=== PATIENT | male | born 1945 | race Caucasian/White ===

== ENCOUNTER → 2016-11-01 | Outpatient (CLI) | payer OTHER ==
[~2016-11-01] MED LIST: ACET-749 PO; AMLO-114 PO; ASPI81TA28 PO; CALC667C4 PO; CLR10 PO; CYCL60CA PO; DOCU100C31 PO; ENAL10TA88 PO; HYDR12.55 PO; LACT10SO17 PO; LOVA20TA4 PO; MBXC PO; MULT-506 PO; NUTR-1260 PO; SENN-61 PO; SILV1CRE73 TOP; TRMO2580 TOP; VNTHFA/IN INH; [UNRECOGNIZED DRUG - CODE] PO
--- NOTE | 2016-11-01 10:01 | DIAGNOSTIC IMAGING REPORT ---
PET/CT CLINICAL HISTORY: Head and neck cancer. COMPARISON STUDY: No priors. TECHNIQUE: One hour following the IV administration of 14.77 mCi of F-18 FDG, PET/CT examination was performed from the vertex through the bony pelvis. Noncontrast CT is performed for the purposes of anatomic correlation and attenuation correction. Note that this does not reflect a diagnostic CT examination. Images were reviewed on a separate [employer] independent workstation. Fused images were obtained. Standard uptake values reported are maximum values within the region of interest expressed in gm/mL. FINDINGS: PET FINDINGS: Head and neck: There is expected physiologic activity within the visualized brain parenchyma at the skull base and the salivary glands. Mild degenerative change is noted throughout the spine. There is nodular soft tissue thickening identified involving the vocal cords, right greater than left. There is significant FDG activity in this region the maximum SUV of 8.6. This likely corresponds to patient's known neoplasm. There is an indeterminant 1.5 cm nodular density identified in the floor of the mouth/base of the tongue on image #68. There is no associated FDG activity within this region. Thorax: Evaluation of the thorax demonstrates expected physiologic myocardial activity. Abdomen and pelvis: There is expected activity within the liver, spleen, kidneys, renal collecting system, and bladder. Low-level bowel activity is likely within physical limits. Unenhanced CT images: The brain parenchyma is normal as visualized. The bony orbits are intact and the orbital contents are within normal limits. There is mucosal thickening and an air-fluid level seen in the right maxillary antrum. The remaining paranasal sinuses and the mastoid air cells are clear. The salivary and thyroid glands are within normal limits. No cervical lymphadenopathy is identified. There is atherosclerotic calcification of the thoracic aorta which is normal in caliber. Advanced emphysema is noted. No airspace consolidation or pleural effusion is seen. No concerning pulmonary lesion is identified. There is no mediastinal, hilar, or axillary lymphadenopathy. The heart is normal in size and there is a trace pericardial effusion. The unenhanced liver, gallbladder, spleen, adrenal glands are grossly unremarkable. The kidneys are atrophic and without hydronephrosis. Bilateral renal cysts measure up to 3.9 cm. The pancreas is atrophic. There is atherosclerotic calcification of the abdominal aorta which is normal in caliber. 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 No bowel obstruction is identified. There is advanced diverticulosis of the left colon without CT evidence of acute diverticulitis. Findings are consistent with previous appendectomy. No intraperitoneal free air or abdominal ascites is seen. There is no abdominal, pelvic, or inguinal lymphadenopathy. The bladder, prostate, and seminal vesicles are normal as visualized. No lytic or blastic bony lesions are seen. IMPRESSION: 1. There is abnormal nodular soft tissue within the region of the vocal cords with associated abnormal FDG localization. This likely represents the patient's known head and neck cancer. 2. There is no evidence of FDG avid metastatic disease. 3. Indeterminate nodular soft tissue seen at the base of the tongue/floor of the mouth. This was not FDG avid and is of indeterminant but doubtful significance. 4. Advanced emphysema. 5. 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 6. Advanced diverticulosis of left colon without CT evidence of acute diverticulitis. 7. Additional findings as above. Electronically signed by: Evelio Riddle M.D. 11/01/2016 9:59 AM Dictated Date/Time: 11/01/2016 9:43 AM
== END ==
LOC: C.PET 06:43
PROVIDERS: ATTEND Family Medicine
DX: C76.0 Malignant neoplasm of head, face and neck (principal)

== ENCOUNTER → 2017-01-28 | Outpatient (CLI) | payer OTHER ==
[2017-01-28 10:09] VITALS: BP_SYST 133; BP_SYST 146; BP_DIAS 84; BP_DIAS 90; PULSE 76; TEMP 36.7; O2SAT 96
--- NOTE | 2017-01-28 11:24 | Radiation Oncology Follow-Up ---
Radiation Oncology Follow-Up Date of Visit Jan 28, 2017. 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 Turner is a 71-year-old gentleman who recently presented with hoarseness. The patient was referred to Dr. Calixto from ENT who did perform a NPL exam which revealed a right true vocal cord lesion. Dr. Calixto took the patient to the operating room on September 03 and performed a direct laryngoscopy with biopsy. During the procedure, he noted a infiltrative lesion disrupting the lateral surface of the true vocal cord extending down into the vocalis muscle. 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 Dr. Calixto recommended radiation therapy so we are now seeing the patient in consultation to discuss potential treatment. Currently, the patient's only complaint is hoarseness of the throat. Otherwise he is asymptomatic. He underwent radiation therapy. Treatments were completed 12/20/2016. He received 6300 cGy. (Eri Retana PA-C) Allergies Coded Allergies: JOSE Inhibitors (Verified Allergy, Unknown, SHORTNESS OF BREATH, 09/29/16) Home Medications Scheduled Acetaminophen/Codeine (Tylenol W/Codeine #3), 2 TAB PO QID Amlodipine (Norvasc), 10 MG PO DAILY Aspirin (Aspirin Ec), 81 MG PO DAILY Calcium Acetate (Phoslo 667 Mg), 1 CAP PO BID Cyclophosphamide (Cyclophosphamide), 25 MG PO DAILY Docusate Sodium (Docusate Sodium), 1 CAP PO BID Enalapril (Vasotec), 10 MG PO DAILY Hydrochlorothiazide (Hydrochlorothiazide), 1 TAB PO DAILY Lactulose (Chronulac), 30 ML PO BID Lovastatin (Mevacor), 20 MG PO DAILY Magic Swizzle (Magic Swizzle - SUCRALFA/ALUM/MAG/DIPHEN/LIDO), 3-4 TSP PO ACHS Multivitamin (Multivitamin), 1 TAB PO DAILY Nutritional Supplements (Resource 2.0), 240 ML PO QID Senna (Senokot), 2 TAB PO DAILY Silver Sulfadiazine (Silvadene), 1 APPLN TOP BID Scheduled PRN Albuterol Hfa (Ventolin Hfa), 2 PUFFS INH Q6H PRN for SOB/Wheezing Loratadine (Claritin), 10 MG PO DAILY PRN for Nasal Congestion Review of Systems Gastrointestinal: Symptoms: Nausea, Constipation GI Comments: Waves of nausea at times but is decreasing;Manageable w/meds; Oral: Symptoms: No Problems, Scant Saliva/Dry Mouth Other Oral Symptoms: Taste is improving;Dry mouth improving; Respiratory: Symptoms: SOB With Exertion Urinary: Symptoms: WNL Skin: Symptoms: No Problems Other Skin Symptoms: Skin around neck with slightly darker pigmentation, but intact (Eri Retana PA-C) Physical Exam Vital Signs Date Time Temp Pulse Resp B/P (MAP) Pulse Ox O2 Delivery O2 Flow Rate FiO2 01/28/17 10:09 36.7 76 20 146/90 96 133/84 Pain: Patient Pain Scale: 0 - 10 Initial Pain Intensity: 0.0 Fatigue: None General Appearance: no apparent distress Eyes: normal inspection, EOMI ENT: hearing grossly normal, + pertinent finding (NPL examination performed by Dr. Sanches. See his dictated note.) Neck: supple, no adenopathy, thyroid normal, no JVD, + pertinent finding ( hyperpigmentation of the anterior neck) Respiratory/Chest: lungs clear, no respiratory distress, no accessory muscle use Cardiovascular: regular rate, rhythm, no gallop, no murmur Extremities: no pedal edema Neurologic/Psychiatric: no motor/sensory deficits, alert, normal mood/affect Skin: warm/dry Lymphatic: no adenopathy (Eri Retana PA-C) Additional Exam Notes: We obtained permission to proceed with a nasopharyngolaryngoscopy. We first apply afrin/lidocaine combination spray to the nares for local anesthesia. The scope was then inserted into the nostril. The nasal cavity and nasopharynx were visualized and no abnormalilities were noted. The scope was then advanced into the oropharynx and the base of tongue, epiglottis and vallecula were well visualized with no abnormalities. The scope was further advanced into the larynx and the vocal cords were well visualized. There was no restricted motion of the vocal cords. No lesions or masses were noted. The scope was slowly retracted and the patient tolerated the procedure well. (Veeral. Sanches MD) Assessment & Plan Plan: Patient has had excellent response to treatment. There is no visible lesion seen on the right true vocal cord. His voice quality has greatly improved. We recommend that he see ENT and have a recheck scoping in 3 months. We asked him to return to our office in 6 months for recheck NPL examination. The [facility] physician can call if there are any questions or concerns in the interim. (Eri Retana PA-C) I agree with note created by Eri Retana PA-C. I reviewed the patient's chart and information with her. I have examined and evaluated the patient. I reviewed relevant clinical information and answered the patient's and/or family' s questions. (Veeral. Sanches MD) Total Time In Follow-Up I spent 20 minutes the need to the patient and performing examination. I spent 15 minutes reviewing information in completing this note. (Eri Retana PA-C) I spent 15 minutes examining and counseling the patient. I spent 15 minutes examining the patient including the NPL exam. (Veeral. Sanches MD) Copy To Kerwin Calixto M.D.; Jose Arellano M.D.
== END | disposition home or self-care (01) ==
LOC: C.ONC 10:00
PROVIDERS: ATTEND Physician Assistant Medical
DX: Z08 Encounter for follow-up examination after completed treatment for malignant neoplasm (principal); Z92.3 Personal history of irradiation; Z85.89 Personal history of malignant neoplasm of other organs and systems